=== PATIENT | female | born 1995 | race Caucasian/White ===

== ENCOUNTER 2019-03-04 02:49 | Emergency (ER) | payer SELFPAY ==
[~2019-03-04] VITALS: Ht 154.9 cm; Wt 62.0 kg
[~2019-03-04 02:49] MED LIST: HYDR-4011 PO; NO CURRENT MEDS
[2019-03-04 02:58] VITALS: Ht 154.9 cm; Wt 62.0 kg
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
[2019-03-04] MEDS ORDERED: DIPHTH/TET/ACEL PERTUSS (ADULT) 0.5 ML VIAL IM* ONE (03:30)
[2019-03-04] MEDS ORDERED: morphine 4 MG/ML VIAL IV STA (04:23)
[2019-03-04] MEDS ORDERED: ONDANSETRON 4 MG INJ ONE (04:26)
[2019-03-04] MEDS ORDERED: SOD CHLORIDE 0.9% 100 ML ONE (04:31)
[2019-03-04] MEDS ORDERED: IOHEXOL 300MG/ML 150 ML BTL ONE (04:31)
[2019-03-04 06:28] VITALS: BP 109/81; PULSE 82; RESP 18
== END 2019-03-04 06:46 | disposition home or self-care (01) ==
LOC: E/R 02:49
DX: S27.321A Contusion of lung, unilateral, initial encounter (principal); S22.43XA Multiple fractures of ribs, bilateral, initial encounter for closed fracture; S60.511A Abrasion of right hand, initial encounter; S60.512A Abrasion of left hand, initial encounter; S70.311A Abrasion, right thigh, initial encounter; R93.0 Abnormal findings on diagnostic imaging of skull and head, not elsewhere classified; V89.2XXA Person injured in unspecified motor-vehicle accident, traffic, initial encounter; Z23 Encounter for immunization
CPT/HCPCS: 70450; 71045; 71260; 72125; 72170; 73510; 81025; J2270; J2405; Q9967; 90471; 90715; 96374